=== PATIENT | male | born 1975 | race Caucasian/White ===

== ENCOUNTER 2018-04-03 15:04 | Emergency (ER) | payer OTHER ==
[~2018-04-03] VITALS: Ht 175.3 cm; Wt 77.3 kg
[2018-04-03] MEDS ORDERED: TORADOL PO (15:24)
[2018-04-03] MEDS ORDERED: FLEXERIL PO (15:24)
[2018-04-03 15:50] VITALS: BP 127/89
== END 2018-04-03 15:50 | disposition home or self-care (01) | DRG 552 ==
LOC: ED 15:04
DX: S16.1XXA Strain of muscle, fascia and tendon at neck level, initial encounter (principal); S40.812A Abrasion of left upper arm, initial encounter; V49.40XA Driver injured in collision with unspecified motor vehicles in traffic accident, initial encounter